=== PATIENT | female | born 1990 | race Asian ===

== ENCOUNTER 2017-05-29 20:30 | Emergency (ER) | payer SELFPAY | END 2017-05-29 20:48 | disposition left against medical advice (07) | LOC: UCEAST 20:30 | DX: H93.90 Unspecified disorder of ear, unspecified ear (principal); Z53.21 Procedure and treatment not carried out due to patient leaving prior to being seen by health care provider ==

== ENCOUNTER 2018-03-24 14:38 | Emergency (ER) | payer SELFPAY ==
[2018-03-24 15:30] VITALS: BP 105/72
--- NOTE | 2018-03-24 16:10 | UC ---
Neck Pain HPI - HPI Summary HPI Summary: 27-year-old woman here with a chief complaint of left neck pain. This started week or 2 ago it's worse with movement it's more in the upper trapezius on the left side is tender to palpation it's worse with movement. No weakness or numbness. No radiation down the arm. Patient reports she had a CA 199 that was elevated in [place] 6 months ago and she like that rechecked. Patient reports regular stools and would like an endoscopy and colonoscopy. Patient reports she has a history of thyroid nodule and she would like that evaluated. Patient reports a growth on her scalp and she like that evaluated. Patient reports a rash in the right inguinal area and she like an antifungal cream for that. Patient reports earwax and she like to have her ears flushed. Patient would like blood work and urine sample for STI screening. She denies any STI symptoms in which like us to get STI screening cause she's GOING to get IN [facility]. Patient is from [place] and she just got here to work at [employer] she'll be working here for several years. She has no primary care doctor. - History of Current Complaint Chief Complaint: UCUpperExtremity Stated Complaint: NECK PAIN Time Seen by Provider: 03/24/18 15:48 Hx Last Menstrual Period: 03/06/18 Pain Intensity: 4 - Allergies/Home Medications Allergies/Adverse Reactions: Allergies Allergy/AdvReac Type Severity Reaction Status Date / Time Cephalosporins Allergy Unknown Verified 03/24/18 15:31 Reaction Details erythromycin base Allergy Unknown Verified 03/24/18 15:31 [From Erythrocin] Reaction Details PMH/Surg Hx/FS Hx/Imm Hx Previously Healthy: Yes - Surgical History Surgical History: None - Family History Known Family History: Positive: Non-Contributory Negative: Blood Disorder - Social History Alcohol Use: None Substance Use Type: None Smoking Status (MU): Never Smoked Tobacco Review Of Systems Constitutional: Positive: Negative Skin: Positive: Other - SEE HPI Eyes: Positive: Negative ENT: Positive: Negative Respiratory: Positive: Negative Cardiovascular: Positive: Negative Gastrointestinal: Positive: Other - SEE HPI Genitourinary: Positive: Negative Musculoskeletal: Positive: Other: - SEE HPI Neurological: Positive: Negative Psychological: Positive: Negative All Other Systems Reviewed And Are Negative: Yes Physical Exam Triage Information Reviewed: Yes Appearance: Well-Appearing, No Pain Distress, Well-Nourished Vital Signs: Initial Vital Signs Temp 97.3 F 03/24/18 15:19 Pulse 91 03/24/18 15:19 Resp 18 03/24/18 15:19 BP 105/72 03/24/18 15:19 Pulse Ox 100 03/24/18 15:19 Vital Signs Reviewed: Yes Eye Exam: Normal Eyes: Positive: Conjunctiva Clear ENT: Positive: TMs normal, Other - BOTH EARS HAVE SOME WAX IN THEM Neck: Positive: Supple, No Lymphadenopathy, Other: - TENDER TO PALPATION LEFT UPPER TRAPEZIUS Respiratory: Positive: Lungs clear, Normal breath sounds, No respiratory distress Cardiovascular: Positive: RRR Abdomen Description: Positive: Nontender, Soft. Negative: CVA Tenderness (R), CVA Tenderness (L) Bowel Sounds: Positive: Present Musculoskeletal Exam: Normal Musculoskeletal: Positive: Strength Intact, ROM Intact Neurological Exam: Normal Neurological: Positive: Alert Psychological Exam: Normal Psychological: Positive: Age Appropriate Behavior Skin: Positive: Other - raised mole 1cm, left scalp Neck Pain Course/Dx - Course Course Of Treatment: The plan is for the patient find a primary care physician I gave him referral number for that. Also give her referrals to endocrinology oncology and dermatology. Her prescription for an antifungal. We are doing an STI screen. Checking a CBC CMP TSH and a CA 199 - Differential Dx/Diagnosis Provider Diagnosis: Neck pain, Screen for STD (sexually transmitted disease), Thyroid disorder screening, Constipation, Excessive cerumen in both ear canals, Rash Discharge - Sign-Out/Discharge Documenting (check all that apply): Patient Departure All imaging exams completed and their final reports reviewed: No Studies - Discharge Plan Condition: Stable Disposition: HOME Prescriptions: Ketoconazole 1 applic TOPICAL DAILY #15 gm Patient Education Materials: Cerumen Impaction (ED), Acute Rash (ED), Acute Neck Pain (ED) Referrals: [facility] [place] [facility] [Outside] Rony Murillo MD [Medical Doctor] - Andrea Eric MD [Medical Doctor] - Bk Gagnon MD [Medical Doctor] - Additional Instructions: Called the phone number provided to get a primary care physician. Contact dermatology for years scalp rash. Contact endocrinology for thyroid. Contact oncology for your CA19-9. FOLLOW UP WITH YOUR DOCTOR IF NOT COMPLETELY IMPROVED. GET RECHECKED FOR ANY WORSENING OF YOUR CONDITION OR QUESTIONS OR CONCERNS. - Billing Disposition and Condition Condition: STABLE Disposition: Home
[2018-03-24 19:53] LABS: ABS Basophils 0 10^3/ul (0-0.2); ABS Eosinophils 0.2 10^3/ul (0-0.6); ABS Lymphocytes 2.7 10^3/ul (1.0-4.8); ABS Monocytes 0.6 10^3/ul (0-0.8); ABS Neutrophils 5.9 10^3/ul (1.5-7.7); ABS Nucleated RBC 0 10^3/ul; Eosinophil % 1.6 %; Hematocrit 42 % (35-47); Lymphocyte % 28.6 %; Mean Corpuscular HGB Conc 34 g/dl (31-36); Mean Corpuscular Hemoglobin 32 pg (27-31); Mean Corpuscular Volume 95 fL (80-97); Mean Platelet Volume 8.6 fL (7.4-10.4); Nucleated Red Blood Cells % 0; Platelet Count 269 10^3/ul (150-450); Red Blood Count 4.39 10^6/ul (4.00-5.40); Red Cell Distribution Width 12 % (10.5-15); White Blood Count 9.4 10^3/ul (3.5-10.8)
[2018-03-24 20:40] LABS: EGFR Non-African American 60.4 (>60)
--- NOTE | 2018-03-26 16:34 | UC ---
- Progress Note Progress Note: Lab results are back from March 24, 2018. The CTA 199 is slightly elevated at 46. The creatinine slightly elevated at 1.08. Nursing to call patient and I recommend sending a copy of all her lab work to the patient. Encouraged her to establish care with a primary care doctor and also to follow up with specialists as recommended at discharge. Course/Dx - Diagnoses Provider Diagnoses: Neck pain, Screen for STD (sexually transmitted disease), Thyroid disorder screening, Constipation, Excessive cerumen in both ear canals, Rash Discharge - Sign-Out/Discharge Documenting (check all that apply): Patient Departure All imaging exams completed and their final reports reviewed: No Studies - Discharge Plan Condition: Stable Disposition: HOME Prescriptions: Ketoconazole 1 applic TOPICAL DAILY #15 gm Patient Education Materials: Cerumen Impaction (ED), Acute Rash (ED), Acute Neck Pain (ED) Referrals: [facility] [place] [facility] [Outside] Rony Murillo MD [Medical Doctor] - Bk Gagnon MD [Medical Doctor] - Andrea Eric MD [Medical Doctor] - Additional Instructions: Called the phone number provided to get a primary care physician. Contact dermatology for years scalp rash. Contact endocrinology for thyroid. Contact oncology for your CA19-9. FOLLOW UP WITH YOUR DOCTOR IF NOT COMPLETELY IMPROVED. GET RECHECKED FOR ANY WORSENING OF YOUR CONDITION OR QUESTIONS OR CONCERNS. - Billing Disposition and Condition Condition: STABLE Disposition: Home
== END 2018-03-24 16:55 | disposition home or self-care (01) ==
LOC: UCEAST 14:38
DX: M54.2 Cervicalgia (principal); Z11.3 Encounter for screening for infections with a predominantly sexual mode of transmission; Z13.89 Encounter for screening for other disorder; K59.00 Constipation, unspecified; H61.23 Impacted cerumen, bilateral; R21 Rash and other nonspecific skin eruption; Z88.1 Allergy status to other antibiotic agents
CPT/HCPCS: 36415; 80053; 80074; 84443; 85025; 86301; 86592; 87389; 87491; 87591; 99212; G0463; G0475

== ENCOUNTER 2018-05-28 19:47 | Emergency (ER) | payer OTHER ==
--- NOTE | 2018-05-28 20:55 | UC ---
UC General HPI - HPI Summary HPI Summary: 27-year-old female comes in with a chief complaint of lightheadedness. Started around 7:30 PM tonight. She was driving. She describes a generalized numbness. Denies any chest pain or shortness of breath or palpitations or focal weakness. She reports she had an echocardiogram 3 years ago and she had some mild valve regurgitation that she was told was normal and she is worried because cause all of her grandfather's side by 70 years old due to heart problems. - History of Current Complaint Chief Complaint: UCRespiratory Stated Complaint: SOB Time Seen by Provider: 05/28/18 20:45 Hx Last Menstrual Period: 3 WEEKS AGO Pain Intensity: 0 - Allergy/Home Medications Allergies/Adverse Reactions: Allergies Allergy/AdvReac Type Severity Reaction Status Date / Time Cephalosporins Allergy Unknown Verified 05/28/18 20:11 Reaction Details erythromycin base Allergy Unknown Verified 05/28/18 20:11 [From Erythrocin] Reaction Details Home Medications: Home Medications Calcium Carbonate [Calcium] 500 mg PO DAILY 05/28/18 [History Confirmed 05/28/18 ] TOPICAL 05/28/18 [History] PMH/Surg Hx/FS Hx/Imm Hx Previously Healthy: Yes - Surgical History Surgical History: None - Family History Known Family History: Positive: Cardiac Disease, Non-Contributory Negative: Blood Disorder - Social History Alcohol Use: Occasionally Substance Use Type: None Smoking Status (MU): Never Smoked Tobacco Review of Systems All Other Systems Reviewed And Are Negative: Yes Constitutional: Positive: Other - SEE HPI Skin: Positive: Negative Eyes: Positive: Negative ENT: Positive: Negative Respiratory: Positive: Negative Cardiovascular: Positive: Negative Gastrointestinal: Positive: Negative Motor: Positive: Negative Neurovascular: Positive: Negative Musculoskeletal: Positive: Negative Neurological: Positive: Numbness - SEE HPI Psychological: Positive: Negative Is Patient Immunocompromised?: No Physical Exam Triage Information Reviewed: Yes Appearance: Well-Appearing, No Pain Distress, Well-Nourished Vital Signs: Initial Vital Signs Temp 98 F 05/28/18 20:00 Pulse 72 05/28/18 20:00 Resp 16 05/28/18 20:00 BP 115/81 05/28/18 20:00 Pulse Ox 98 05/28/18 20:00 Vital Signs Reviewed: Yes Eye Exam: Normal Eyes: Positive: Conjunctiva Clear ENT: Positive: Pharynx normal Neck exam: Normal Neck: Positive: Supple Respiratory: Positive: Lungs clear, Normal breath sounds, No respiratory distress Cardiovascular: Positive: RRR Musculoskeletal Exam: Normal Musculoskeletal: Positive: Strength Intact, ROM Intact Neurological Exam: Normal Neurological: Positive: Alert, Muscle Tone Normal Psychological Exam: Normal Psychological: Positive: Age Appropriate Behavior Skin Exam: Normal Diagnostics - EKG Cardiac Rate: NL - AT 205 Cardiac Rhythm: Sinus: Normal - 62 BPM Ectopy: None ST Segment: Normal Course/Dx - Course Course Of Treatment: Orthostatics were normal in clinic. Heart rate did go up slightly. Patient drank much water here and says she is feeling better. EKG was also normal. The EKG results with the patient and her partner. The plan is to follow up with her primary care doctor get reevaluated sooner if worse or any questions or concerns. - Diagnoses Provider Diagnosis: Lightheadedness Discharge - Sign-Out/Discharge Documenting (check all that apply): Patient Departure All imaging exams completed and their final reports reviewed: No Studies - Discharge Plan Condition: Stable Disposition: HOME Patient Education Materials: Lightheadedness (ED) Referrals: Janice Wood MD [Primary Care Provider] - Additional Instructions: FOLLOW UP WITH YOUR DOCTOR. DRINK PLENTY OF FLUIDS. GET RECHECKED SOONER WITH ANY WORSENING OF YOUR CONDITION OR QUESTIONS OR CONCERNS. - Billing Disposition and Condition Condition: STABLE Disposition: Home
[2018-05-28 21:16] VITALS: BP 110/75
== END 2018-05-28 22:15 | disposition home or self-care (01) ==
LOC: UCEAST 19:47
DX: R42 Dizziness and giddiness (principal); R20.0 Anesthesia of skin; Z88.1 Allergy status to other antibiotic agents
CPT/HCPCS: 99212; G0463

== ENCOUNTER 2018-07-13 00:29 | Emergency (ER) | payer OTHER ==
[2018-07-13 00:40] VITALS: BP 121/80
== END 2018-07-13 01:30 | disposition left against medical advice (07) ==
LOC: ED 00:29
DX: R07.89 Other chest pain (principal); Z53.21 Procedure and treatment not carried out due to patient leaving prior to being seen by health care provider
CPT/HCPCS: 93005; 99282